=== PATIENT | female | born 1955 | race Caucasian/White ===

== ENCOUNTER 2017-02-11 12:13 | Emergency (ER) | payer BC ==
[2017-02-11 12:41] VITALS: BP 98/77
--- NOTE | 2017-02-11 13:16 | UC ---
Xavier Gibbs Thomas, [facility] 02/11/17 at 1302 . Throat Pain/Nasal [place] HPI - HPI Summary HPI Summary: In Room Note: The patient is a 61 year old female presenting to Urgent Care complaining of nasal drainage and nasal congestion for the last several days. She describes the nasal drainage as foul-smelling. The patient was cleaning her basement recently and was going through moldy bins, including one particularly bad- smelling bin. The patient has treated the symptoms with Brittni prior to arrival. Patient additionally complains of chronic neck pain. Patient denies fever any other complaints. MD Note: VSS, Pulse 106, respiratory rate 16. She is a smoker. Visit History: noncontributory to present exam. No allergies, no medications. Left breast mastectomy 20 years ago. Nurses Note: had been cleaning in the basement. was in a lot of moldy bins of old stuff. she has had a runny nose with foul smelling nasal drainage since then. She did try taking Brittni but it did not help. - History of Current Complaint Chief Complaint: UCGeneralIllness Stated Complaint: RESP COMPLAINT Time Seen by Provider: 02/11/17 12:52 Hx Obtained From: Patient Onset/Duration: Lasting Days - last several, Still Present Severity: Moderate Pain Intensity: 0 Pain Scale Used: 0-10 Numeric Cough: None Associated Signs & Symptoms: Positive: Nasal Discharge, Other - Nasal congestion , chronic neck pain Related History: Smoking, Other (Noted In Comments) - Moldy basement - Allergies/Home Medications Allergies/Adverse Reactions: Allergies Allergy/AdvReac Type Severity Reaction Status Date / Time No Known Allergies Allergy Verified 02/11/17 12:41 PMH/Surg Hx/FS Hx/Imm Hx Previously Healthy: No - Breast cancer. NEGATIVE: CAD. - Surgical History Surgical History: Yes Surgery Procedure, Year, and Place: left mastectomy - Family History Known Family History: Negative: Cardiac Disease - Social History Occupation: Unemployed Lives: With Family Alcohol Use: Daily Substance Use Type: None Smoking Status (MU): Light Every Day Tobacco Smoker Review of Systems ENT: Nasal Discharge, Other - Nasal congestion Musculoskeletal: Other: - Chronic neck pain Is Patient Immunocompromised?: No All Other Systems Reviewed And Are Negative: Yes - Comments Additional Review of Systems Comments: A 12 point review of systems was completed and significantly positive for nasal discharge, nasal congestion, and chronic neck pain. The remainder of the review was negative except as stated above in the HPI. Physical Exam Triage Information Reviewed: Yes Vital Signs: Initial Vital Signs Temp 98.5 F 02/11/17 12:33 Pulse 106 02/11/17 12:33 Resp 16 02/11/17 12:33 BP 98/77 02/11/17 12:33 Vital Signs Reviewed: Yes - Additional Comments Appearance: The patient is well-appearing, is in no pain distress, and is well- nourished. Eyes: Conjunctiva are clear. ENT: The hearing is grossly normal, the pharynx is normal, and the TMs are normal. There is no muffled or hoarse voice. When I look in the nose, there is no evidence for trauma or infection. There is normal erythema to the septum. There is no bleeding. Both nares are patent. Neck: The neck is supple and nontender. Respiratory: The chest is nontender. The lungs are clear, there are normal breath sounds, and there is no respiratory distress. Cardiovascular: Heart is regular rate and rhythm. There is no murmur. Abdomen: The abdomen is soft and nontender. There is no organomegaly. Bowel sounds: present Musculoskeletal: Strength is intact. The patient moves all extremities. Neurological: The patient is alert. Psychological: The patient displays age appropriate behavior Skin: Negative for rashes. Throat Pain/Nasal Course/Dx - Course Assessment/Plan: Normal BP reading and no follow-up instructions required. Medications have been included in the original chart and reviewed. - Differential Dx/Diagnosis Differential Diagnosis/HQI/PQRI: Sinusitis, Other - Allergic reaction, rhinitis Provider Diagnoses: Allergic reaction, rhinitis Discharge - Discharge Plan Condition: Stable Disposition: HOME Prescriptions: Fluticasone Propionate (Nasal) [Flonase Allergy Relief] 50 mcg NA BID #1 spr MDD 8 sprays per nostril Patient Education Materials: Allergic Rhinitis (ED), General Allergic Reaction (ED) Referrals: Marcelino Alfaro MD [Primary Care Provider] - Additional Instructions: Thank you for helping us improve patient care by filling out the My Point Survey. WE DISCUSSED: 1. You have a localized allergic reaction in your nose from breathing something in through your nostrils. This may also have caused a mild inflammation, a "rhinitis." 2. Irrigate your nasal passages with warm warm from a syringe or with a Neti pot. 3. Use spray to calm your nostril skin. Flonase, 2 sprays to each nostril, twice a day. 4. Coat your nose with a little Vaseline for the next 5 days. PLEASE SEEK CARE AT THE EMERGENCY DEPARTMENT IF SYMPTOMS WORSEN OR IF NEW SYMPTOMS DEVELOP. FOLLOW UP WITH YOUR PRIMARY CARE PHYSICIAN IF YOU ARE NOT IMPROVING IN 5 DAYS. The documentation as recorded by the Xavier mo Thomas accurately reflects the service I personally performed and the decisions made by , Sree Hamilton MD.
== END 2017-02-11 13:20 | disposition home or self-care (01) ==
LOC: UCEAST 12:13
DX: J30.9 Allergic rhinitis, unspecified (principal)
CPT/HCPCS: 99212; G0463

== ENCOUNTER 2017-02-23 15:57 | Emergency (ER) | payer BC ==
[2017-02-23 16:15] VITALS: BP 118/91
--- NOTE | 2017-02-23 16:48 | UC ---
Throat Pain/Nasal [place] HPI - HPI Summary HPI Summary: Pt states approx 3 weeks ago got a sudden dust exposure in face. Pt states quickly became stuffy and was evaluated here. Pt states she was given Rx flonase Over past 1 week increased congestion wit thick green nasal secretion left nose. Pr treports sinus pressure left max + PND No ear pain. No fever, chills + improvement with steam shower Pt's medications reviewed this visit - History of Current Complaint Chief Complaint: UCGeneralIllness Stated Complaint: SINUS CONGESTION, AND NECK AND HEADACHE Time Seen by Provider: 02/23/17 16:48 Hx Obtained From: Patient ?: No Onset/Duration: Gradual Onset Severity: Moderate Associated Signs & Symptoms: Positive: Negative - Allergies/Home Medications Allergies/Adverse Reactions: Allergies Allergy/AdvReac Type Severity Reaction Status Date / Time No Known Allergies Allergy Verified 02/23/17 16:15 PMH/Surg Hx/FS Hx/Imm Hx Previously Healthy: Yes - Surgical History Surgical History: Yes Surgery Procedure, Year, and Place: left mastectomy - Family History Known Family History: Negative: Cardiac Disease, Diabetes - Social History Occupation: Works From/At Home Lives: With Family Alcohol Use: Daily Substance Use Type: None Smoking Status (MU): Smoker, Current Status Unknown Review of Systems Constitutional: Negative Skin: Negative Eyes: Negative ENT: Nasal Discharge, Sinus Pain/Tenderness Respiratory: Negative All Other Systems Reviewed And Are Negative: Yes Physical Exam Triage Information Reviewed: Yes Appearance: Well-Appearing, No Pain Distress, Well-Nourished Vital Signs: Initial Vital Signs Temp 99.1 F 02/23/17 16:09 Pulse 105 02/23/17 16:09 Resp 20 02/23/17 16:09 BP 118/91 02/23/17 16:09 Pulse Ox 100 02/23/17 16:09 Vital Signs Reviewed: Yes Eye Exam: Normal Eyes: Positive: Conjunctiva Clear ENT Exam: Normal ENT: Positive: Normal ENT inspection, Nasal congestion, TMs normal, Sinus tenderness - max, Other - + pnd + TTP left max sinus. Negative: Pharyngeal erythema Dental Exam: Normal Neck exam: Normal Neck: Positive: Supple, Nontender, No Lymphadenopathy Respiratory Exam: Normal Respiratory: Positive: Chest non-tender, Lungs clear, Normal breath sounds, No respiratory distress, No accessory muscle use Cardiovascular Exam: Normal Cardiovascular: Positive: RRR, No Murmur Abdominal Exam: Normal Abdomen Description: Positive: Nontender, No Organomegaly Bowel Sounds: Positive: Present Musculoskeletal Exam: Normal Musculoskeletal: Positive: Strength Intact Neurological Exam: Normal Neurological: Positive: Alert Psychological Exam: Normal Psychological: Positive: Normal Response To Family Skin Exam: Normal Throat Pain/Nasal Course/Dx - Course Course Of Treatment: Pt with sinus congestion, discomfort and green discharge left nose s/p dust exposure. PT well appearing with sinus congesion. Will start abx. secretion precaution. Pt comfortable and in agreement with plan - Differential Dx/Diagnosis Provider Diagnoses: sinusitis Discharge - Discharge Plan Condition: Stable Disposition: HOME Prescriptions: Amoxicillin/Clavulanate TAB* [Augmentin TAB 875*] 875 mg PO BID #20 tab Fluconazole [Diflucan 150 MG (NF)] 150 mg PO ONCE PRN #1 tab PRN Reason: yeast infection Patient Education Materials: Sinusitis (ED) Referrals: Marcelino Alfaro MD [Primary Care Provider] - Additional Instructions: - Stay well hydrated. Drink plenty of non-alcoholic, non-caffinated beverages. - After you have been on antibiotics for 2 days - change your toothbrush and your pillowcase. These infections are spread by secretions - do NOT share eating or drinking utensils - clean items you share with other people such as cell phones, computer mouse, TV remote, computer tablets, etc - Alternate ibuprofen (Advil, Motrin) 600mg and Tylenol every 3 hours for pain or fever. Take with food. Do NOT take for more than 4-5 days. - You may develop diarrhea with the antibiotics- this is normal. Taking yogurt or a pro-biotic may help with the diarrhea. - You have been given a prescription for diflucan to take at the end of your antibiotics if you develop a yeast infection - Contact your doctor to schedule a follow-up appointment. Contact your doctor or return with questions or concerns
== END 2017-02-23 17:05 | disposition home or self-care (01) ==
LOC: UCEAST 15:57
DX: J32.9 Chronic sinusitis, unspecified (principal); F17.200 Nicotine dependence, unspecified, uncomplicated
CPT/HCPCS: 99212; G0463

== ENCOUNTER 2022-07-06 10:05 | Inpatient (IN) ==
[2022-07-06 11:36] LABS: ABS Monocytes 0.6 10^3/uL (0.0-0.9); Hematocrit 36.2 % (35-45); Hemoglobin 12.1 g/dL (11.5-14.3); Lymphocyte % 15.7 %; Mean Corpuscular Hgb Conc 33.4 g/dL (31-36); Mean Corpuscular Volume 86.9 fL (80-97); Mean Platelet Volume 9.3 fL (7.5-11.2); Platelet Count 248 10^3/uL (150-450); Red Blood Count 4.16 10^6/uL (3.63-4.92); Red Cell Distribution Width 14.2 % (12-17); White Blood Count 6.7 10^3/uL (3.8-11.8)
[2022-07-06 11:37] LABS: Urine Appearance Clear; Urine Bilirubin Negative (Negative); Urine Blood Negative (Negative); Urine Color Yellow; Urine Glucose Negative (Negative); Urine Ketones Negative (Negative); Urine Nitrite Negative (Negative); Urine Protein Negative (Negative); Urine Specific Gravity 1.011 (1.002-1.030); Urine Urobilinogen Negative (Negative)
[2022-07-06 12:20] LABS: TSH Ultra Thyroid Stim Horm 0.81 mcIU/mL (0.34-5.60)
[2022-07-06 12:33] LABS: ALT 14 U/L (7-52); Albumin 3.6 g/dL (3.2-5.2); Albumin/Globulin Ratio 1.3 (1-3); Alkaline Phosphatase 151 U/L (35-149); Blood Urea Nitrogen 11 mg/dL (6-24); CO2 Carbon Dioxide 28 mmol/L (22-32); Calcium 8.8 mg/dL (8.6-10.3); Chloride 102 mmol/L (101-111); Creatinine, Serum 0.45 mg/dL (0.51-0.95); Globulin 2.7 g/dL (2-4); Glucose 105 mg/dL (70-100); Sodium 138 mmol/L (135-145); Total Protein 6.3 g/dL (6.4-8.9); eGFR CKD-EPI 104.7 (>60)
[2022-07-06 12:39] LABS: Anion Gap 8 mmol/L (2-16)
[2022-07-06 14:39] LABS: GGTP 15 U/L (9-64.0)
[2022-07-06 14:44] LABS: Vitamin B12 380 pg/mL (180-914)
[2022-07-06] MEDS ORDERED: NS 0.9% 500 ml BAG 500 ML IV ONE ×2 (15:01→16:07)
[2022-07-06 16:00] LABS: Potassium Redraw 3.6 mmol/L (3.5-5.0)
[2022-07-06] MEDS ORDERED: NS 0.9% 1000 ML/HR X 1 BAG (TOTAL 1000 ML) IV ONE (17:15)
[2022-07-06] MEDS: Enoxaparin 40 MG/0.4 ML SYR SUBCUT SCH (17:24)
[2022-07-06] MEDS: NS 0.9% 1000 ml BAG 1,000 ML IV SCH (18:37)
[2022-07-06] MEDS: levETIRAcetam LIQ 500 MG/5 ML UDC PO SCH (23:07)
[2022-07-07 05:33] LABS: ABS Lymphocytes 1.2 10^3/uL (1.0-4.8); ABS Monocytes 0.6 10^3/uL (0.0-0.9); ABS Neutrophils 4.9 10^3/uL (1.5-7.6); Eosinophil % 0.1 %; Hematocrit 34.5 % (35-45); Hemoglobin 11.3 g/dL (11.5-14.3); Mean Corpuscular Hemoglobin 28.4 pg (27-33); Mean Corpuscular Hgb Conc 32.7 g/dL (31-36); Mean Corpuscular Volume 86.7 fL (80-97); Mean Platelet Volume 8.4 fL (7.5-11.2); Platelet Count 210 10^3/uL (150-450); Red Blood Count 3.98 10^6/uL (3.63-4.92); Red Cell Distribution Width 13.7 % (12-17); White Blood Count 6.7 10^3/uL (3.8-11.8)
[2022-07-07 06:13] LABS: Calcium 8.2 mg/dL (8.6-10.3); Creatinine, Serum 0.47 mg/dL (0.51-0.95); Potassium 3.1 mmol/L (3.5-5.0); eGFR CKD-EPI 103.6 (>60)
[2022-07-07] MEDS: NS 0.9% 1000 ml BAG 1,000 ML IV SCH (08:53)
[2022-07-07] MEDS: levETIRAcetam LIQ 500 MG/5 ML UDC PO SCH (11:06)
[2022-07-07 15:08] LABS: Creatine Kinase 572 U/L (10-223)
[2022-07-07] MEDS: Enoxaparin 40 MG/0.4 ML SYR SUBCUT SCH (15:17)
[2022-07-07] MEDS: Acetaminophen IV 1 GM/100ML 1,000 MG/100 ML BAG IV PRN (15:50)
[2022-07-07] MEDS ORDERED: Vancomycin per Pharmacy 1 EA NOTE FOLLOW UP PRN (16:44)
[2022-07-07] MEDS ORDERED: Acyclovir IV 860 MG in NS 0.9% 250 ml 250 ML IVPB SCH (17:00)
[2022-07-07] MEDS ORDERED: Vancomycin 1,250 MG in NS 0.9% 250 ml 250 ML IVPB ONE (17:00)
[2022-07-07] MEDS: cefTRIAXone 2 gm/50 mL D5W 2 GM/50 ML BAG IV SCH (17:42)
[2022-07-07] MEDS ORDERED: Acyclovir IV 570 MG in NS 0.9% 100 ml BAG 100 ML IVPB SCH (18:00)
[2022-07-07] MEDS: Ampicillin ADVAN 2 GM in NS 0.9% 100 ml BAG 100 ML IVPB SCH (18:19)
[2022-07-07] MEDS ORDERED: OLANZapine IM (NF) 10 MG VIAL IM ONE (21:10)
[2022-07-08] MEDS ORDERED: Iohexol 350 (CONTRAST) 500 ML MDV IV ONE (00:10)
[2022-07-08] MEDS: levETIRAcetam LIQ 500 MG/5 ML UDC PO SCH ×3 (00:19→22:08)
[2022-07-08] MEDS: Ampicillin ADVAN 2 GM in NS 0.9% 100 ml BAG 100 ML IVPB SCH ×4 (02:07→10:04)
[2022-07-08] MEDS ORDERED: OLANZapine IM (NF) 10 MG VIAL IM ONE (02:20)
[2022-07-08] MEDS: Acyclovir IV 570 MG in NS 0.9% 100 ml BAG 100 ML IVPB SCH ×2 (02:57→08:34)
[2022-07-08] MEDS: cefTRIAXone 2 gm/50 mL D5W 2 GM/50 ML BAG IV SCH (04:27)
[2022-07-08 05:59] LABS: ABS Lymphocytes 1.7 10^3/uL (1.0-4.8); ABS Monocytes 0.6 10^3/uL (0.0-0.9); ABS Neutrophils 3.4 10^3/uL (1.5-7.6); ABS Nucleated RBC 0.01 10^3/ul; Eosinophil % 0.2 %; Hematocrit 38.5 % (35-45); Hemoglobin 12.7 g/dL (11.5-14.3); Lymphocyte % 29.4 %; Mean Corpuscular Hemoglobin 29.1 pg (27-33); Mean Platelet Volume 8.7 fL (7.5-11.2); Nucleated Red Blood Cells % 0.1 /100 WBC (0.0-0.4); Platelet Count 183 10^3/uL (150-450); Red Blood Count 4.37 10^6/uL (3.63-4.92); White Blood Count 5.7 10^3/uL (3.8-11.8)
[2022-07-08 06:25] LABS: Calcium 8.5 mg/dL (8.6-10.3); Potassium 3.3 mmol/L (3.5-5.0)
[2022-07-08 06:30] LABS: Creatinine, Serum 0.43 mg/dL (0.51-0.95); eGFR CKD-EPI 105.9 (>60)
[2022-07-08] MEDS ORDERED: Potassium Chlor 20 meq TAB.ER PO ONE (07:24)
[2022-07-08] MEDS ORDERED: Vancomycin 1000 MG in NS 0.9% 250 ML IVPB SCH (08:00)
[2022-07-08 08:28] LABS: Magnesium 2.1 mg/dL (1.9-2.7)
[2022-07-08] MEDS: metroNIDAZOLE IV 500 MG/100ML 500 MG/100 ML BAG IVPB SCH ×2 (11:23→20:57)
[2022-07-08] MEDS: Enoxaparin 40 MG/0.4 ML SYR SUBCUT SCH (16:09)
[2022-07-08] MEDS: OLANZAPINE 10 MG IM PRN (17:26)
[2022-07-08] MEDS ORDERED: OLANZapine IM (NF) 10 MG VIAL IM PRN (17:33)
[2022-07-09] MEDS: metroNIDAZOLE IV 500 MG/100ML 500 MG/100 ML BAG IVPB SCH ×3 (01:44→21:17)
[2022-07-09] MEDS: cefTRIAXone 1 gm/50 mL D5W 1 GM/50 ML BAG IV SCH (03:55)
[2022-07-09] MEDS: OLANZAPINE 10 MG IM PRN ×3 (05:15→23:10)
[2022-07-09] MEDS ORDERED: Vancomycin Trough Check NOTE FOLLOW UP ONE (07:30)
[2022-07-09 08:25] LABS: ABS Lymphocytes 1.5 10^3/uL (1.0-4.8); ABS Monocytes 0.5 10^3/uL (0.0-0.9); ABS Neutrophils 3.1 10^3/uL (1.5-7.6); Eosinophil % 0.5 %; Hematocrit 34.9 % (35-45); Hemoglobin 11.5 g/dL (11.5-14.3); Mean Corpuscular Hemoglobin 28.7 pg (27-33); Mean Corpuscular Hgb Conc 32.9 g/dL (31-36); Mean Corpuscular Volume 87.4 fL (80-97); Mean Platelet Volume 8.9 fL (7.5-11.2); Platelet Count 221 10^3/uL (150-450); Red Blood Count 3.99 10^6/uL (3.63-4.92); Red Cell Distribution Width 13.8 % (12-17)
[2022-07-09 08:58] LABS: Calcium 8.2 mg/dL (8.6-10.3); Creatinine, Serum 0.45 mg/dL (0.51-0.95); Potassium 2.9 mmol/L (3.5-5.0); eGFR CKD-EPI 104.7 (>60)
[2022-07-09] MEDS ORDERED: OLANZapine IM (NF) 10 MG VIAL IM ONE (08:58)
[2022-07-09] MEDS: levETIRAcetam LIQ 500 MG/5 ML UDC PO SCH (11:10)
[2022-07-09] MEDS ORDERED: Gadoteridol (CONTRAST) 279.3 MG/ML 10 ML IV ONE (12:01)
[2022-07-09] MEDS ORDERED: D5W 1/2 NS KCl 20 meq 1000 ml 1,000 ML IV SCH (15:00)
[2022-07-09] MEDS: Enoxaparin 40 MG/0.4 ML SYR SUBCUT SCH (15:32)
[2022-07-09] MEDS: Potassium Chloride LIQUID 20 MEQ/15 ML LIQUID PO ONE ×2 (15:32→15:35)
[2022-07-09] MEDS ORDERED: OLANZapine IM (NF) 10 MG VIAL IM PRN ×2 (17:11→18:00)
[2022-07-09] MEDS ORDERED: Potassium Chloride LIQUID 20 MEQ/15 ML LIQUID PO ONE (18:00)
[2022-07-09] MEDS: KCL 10 MEQ/50 ML IVPREMIX 10 MEQ/50 ML BAG IV SCH ×2 (22:15→23:20)
[2022-07-10] MEDS: Acetaminophen IV 1 GM/100ML 1,000 MG/100 ML BAG IV PRN (00:34)
[2022-07-10] MEDS: KCL 10 MEQ/50 ML IVPREMIX 10 MEQ/50 ML BAG IV SCH (00:53)
[2022-07-10] MEDS ORDERED: Hyaluronidase HUMAN 15 UNIT in Sodium Chloride 0.9% 0.9 ML INTRADERM ONE (01:34)
[2022-07-10] MEDS: levETIRAcetam LIQ 500 MG/5 ML UDC PO SCH ×3 (01:40→21:56)
[2022-07-10] MEDS: cefTRIAXone 1 gm/50 mL D5W 1 GM/50 ML BAG IV SCH (02:56)
[2022-07-10] MEDS: metroNIDAZOLE IV 500 MG/100ML 500 MG/100 ML BAG IVPB SCH ×3 (04:26→17:51)
[2022-07-10 07:12] LABS: Hematocrit 34.7 % (35-45); Hemoglobin 11.6 g/dL (11.5-14.3); Mean Corpuscular Hemoglobin 28.8 pg (27-33); Mean Corpuscular Hgb Conc 33.6 g/dL (31-36); Mean Corpuscular Volume 85.7 fL (80-97); Mean Platelet Volume 8.9 fL (7.5-11.2); Platelet Count 215 10^3/uL (150-450); Red Blood Count 4.05 10^6/uL (3.63-4.92); Red Cell Distribution Width 13.8 % (12-17); White Blood Count 5.1 10^3/uL (3.8-11.8)
[2022-07-10 07:36] LABS: Creatinine, Serum 0.35 mg/dL (0.51-0.95); Potassium 3.4 mmol/L (3.5-5.0)
[2022-07-10 07:37] LABS: Calcium 8.4 mg/dL (8.6-10.3); Phosphorus 3.7 mg/dL (2.5-5.0); eGFR CKD-EPI 111.3 (>60)
[2022-07-10] MEDS: Potassium Chloride LIQUID 20 MEQ/15 ML LIQUID PO SCH ×2 (09:58→21:55)
[2022-07-10] MEDS: Enoxaparin 40 MG/0.4 ML SYR SUBCUT SCH (15:15)
[2022-07-10] MEDS: CMC:Meloxicam 7.5 mg TAB (NF) PO SCH (15:15)
[2022-07-10] MEDS: Haloperidol 5 mg/ml SDV IV/IM 5 MG/ML AMP IM PRN (15:22)
[2022-07-10] MEDS ORDERED: Morphine 2 MG/ML SYRINGE IV ONE (18:22)
[2022-07-10] MEDS ORDERED: Acetaminophen IV 1 GM/100ML 1,000 MG/100 ML BAG IV PRN (21:38)
[2022-07-11] MEDS: metroNIDAZOLE IV 500 MG/100ML 500 MG/100 ML BAG IVPB SCH ×3 (02:19→18:31)
[2022-07-11] MEDS: cefTRIAXone 1 gm/50 mL D5W 1 GM/50 ML BAG IV SCH (03:41)
[2022-07-11] MEDS ORDERED: Morphine 2 MG/ML SYRINGE IV ONE (05:00)
[2022-07-11 05:57] LABS: ABS Eosinophils 0.1 10^3/uL (0.0-0.5); ABS Lymphocytes 1.6 10^3/uL (1.0-4.8); ABS Monocytes 0.3 10^3/uL (0.0-0.9); ABS Neutrophils 2.5 10^3/uL (1.5-7.6); ABS Nucleated RBC 0.01 10^3/ul; Eosinophil % 1.5 %; Hemoglobin 11.1 g/dL (11.5-14.3); Lymphocyte % 35.4 %; Mean Corpuscular Hemoglobin 28.7 pg (27-33); Mean Corpuscular Hgb Conc 32.7 g/dL (31-36); Mean Corpuscular Volume 87.7 fL (80-97); Mean Platelet Volume 9.2 fL (7.5-11.2); Nucleated Red Blood Cells % 0.1 /100 WBC (0.0-0.4); Platelet Count 222 10^3/uL (150-450); Red Blood Count 3.87 10^6/uL (3.63-4.92); Red Cell Distribution Width 13.9 % (12-17); White Blood Count 4.5 10^3/uL (3.8-11.8)
[2022-07-11 06:13] LABS: Calcium 8.5 mg/dL (8.6-10.3); Creatinine, Serum 0.45 mg/dL (0.51-0.95); Potassium 4.3 mmol/L (3.5-5.0); eGFR CKD-EPI 104.7 (>60)
[2022-07-11] MEDS ORDERED: Meloxicam 15 mg TAB (NF) PO SCH (09:00)
[2022-07-11] MEDS: Haloperidol 5 mg/ml SDV IV/IM 5 MG/ML AMP IM PRN (09:02)
[2022-07-11] MEDS ORDERED: Haloperidol 5 mg/ml SDV IV/IM 5 MG/ML AMP IV SLOW PU PRN (09:23)
[2022-07-11] MEDS: levETIRAcetam LIQ 500 MG/5 ML UDC PO SCH ×2 (12:39→20:08)
[2022-07-11] MEDS: CMC:Meloxicam 7.5 mg TAB (NF) PO SCH (16:58)
[2022-07-11] MEDS: Enoxaparin 40 MG/0.4 ML SYR SUBCUT SCH (16:59)
[2022-07-11] MEDS: Morphine 2 MG/ML SYRINGE IV PRN (18:55)
[2022-07-12] MEDS: metroNIDAZOLE IV 500 MG/100ML 500 MG/100 ML BAG IVPB SCH ×3 (02:04→17:55)
[2022-07-12] MEDS: cefTRIAXone 1 gm/50 mL D5W 1 GM/50 ML BAG IV SCH (03:38)
[2022-07-12] MEDS: Morphine 2 MG/ML SYRINGE IV PRN ×3 (05:55→19:46)
[2022-07-12] MEDS: levETIRAcetam LIQ 500 MG/5 ML UDC PO SCH (08:11)
[2022-07-12] MEDS: Enoxaparin 40 MG/0.4 ML SYR SUBCUT SCH ×2 (14:08→14:47)
[2022-07-12] MEDS: CMC:Meloxicam 7.5 mg TAB (NF) PO SCH (14:46)
[2022-07-12] MEDS: Haloperidol 5 mg/ml SDV IV/IM 5 MG/ML AMP IM PRN (17:43)
[2022-07-13] MEDS: levETIRAcetam LIQ 500 MG/5 ML UDC PO SCH ×3 (00:16→20:42)
[2022-07-13] MEDS: metroNIDAZOLE IV 500 MG/100ML 500 MG/100 ML BAG IVPB SCH (02:10)
[2022-07-13] MEDS: cefTRIAXone 1 gm/50 mL D5W 1 GM/50 ML BAG IV SCH (03:15)
[2022-07-13] MEDS: Morphine 2 MG/ML SYRINGE IV PRN ×2 (04:01→09:20)
[2022-07-13] MEDS ORDERED: Morphine 2 MG/ML SYRINGE IV ONE ×2 (13:38→21:03)
[2022-07-13] MEDS: CMC:Meloxicam 7.5 mg TAB (NF) PO SCH (16:25)
[2022-07-13] MEDS: Enoxaparin 40 MG/0.4 ML SYR SUBCUT SCH (16:25)
[2022-07-13] MEDS: Haloperidol 5 mg/ml SDV IV/IM 5 MG/ML AMP IM PRN (19:04)
[2022-07-14] MEDS: levETIRAcetam LIQ 500 MG/5 ML UDC PO SCH ×3 (01:33→21:19)
[2022-07-14] MEDS: CMC:Meloxicam 7.5 mg TAB (NF) PO SCH (17:06)
[2022-07-14] MEDS: Enoxaparin 40 MG/0.4 ML SYR SUBCUT SCH (17:07)
[2022-07-15] MEDS ORDERED: Morphine ORAL CONCENTRATE 5 MG/0.25 ML ORAL.SYRIN PO PRN (07:58)
[2022-07-15] MEDS: Morphine ORAL CONCENTRATE 5 MG/0.25 ML ORAL.SYRIN SL PRN ×3 (08:22→19:01)
[2022-07-15] MEDS: levETIRAcetam LIQ 500 MG/5 ML UDC PO SCH ×2 (11:05→20:02)
[2022-07-15] MEDS: Enoxaparin 40 MG/0.4 ML SYR SUBCUT SCH (14:05)
[2022-07-15] MEDS: CMC:Meloxicam 7.5 mg TAB (NF) PO SCH (16:50)
[2022-07-16] MEDS: Morphine ORAL CONCENTRATE 5 MG/0.25 ML ORAL.SYRIN SL PRN ×3 (06:25→22:13)
[2022-07-16] MEDS: levETIRAcetam LIQ 500 MG/5 ML UDC PO SCH ×2 (09:54→20:33)
[2022-07-16] MEDS: CMC:Meloxicam 7.5 mg TAB (NF) PO SCH (14:58)
[2022-07-16] MEDS: Enoxaparin 40 MG/0.4 ML SYR SUBCUT SCH (14:58)
[2022-07-17] MEDS: Morphine ORAL CONCENTRATE 5 MG/0.25 ML ORAL.SYRIN SL PRN (03:12)
[2022-07-17] MEDS ORDERED: Haloperidol 5 mg/ml SDV IV/IM 5 MG/ML AMP IV SLOW PU ONE (05:31)
[2022-07-17] MEDS: levETIRAcetam LIQ 500 MG/5 ML UDC PO SCH ×2 (09:53→22:24)
[2022-07-17] MEDS ORDERED: Polyethylene Glycol 3350 17 GM PACKET PO PRN (10:50)
[2022-07-17] MEDS: Enoxaparin 40 MG/0.4 ML SYR SUBCUT SCH (15:07)
[2022-07-17] MEDS: CMC:Meloxicam 7.5 mg TAB (NF) PO SCH (15:08)
[2022-07-18] MEDS: levETIRAcetam LIQ 500 MG/5 ML UDC PO SCH ×2 (08:18→20:43)
[2022-07-18] MEDS: Morphine ORAL CONCENTRATE 5 MG/0.25 ML ORAL.SYRIN SL PRN ×2 (09:01→19:33)
[2022-07-18] MEDS: Enoxaparin 40 MG/0.4 ML SYR SUBCUT SCH (13:59)
[2022-07-18] MEDS: CMC:Meloxicam 7.5 mg TAB (NF) PO SCH (14:07)
[2022-07-19] MEDS: Morphine ORAL CONCENTRATE 5 MG/0.25 ML ORAL.SYRIN SL PRN ×3 (03:11→17:56)
[2022-07-19] MEDS: levETIRAcetam LIQ 500 MG/5 ML UDC PO SCH ×2 (07:37→21:18)
[2022-07-19] MEDS: Enoxaparin 40 MG/0.4 ML SYR SUBCUT SCH (15:17)
[2022-07-19] MEDS: CMC:Meloxicam 7.5 mg TAB (NF) PO SCH (15:18)
[2022-07-20] MEDS: Morphine ORAL CONCENTRATE 5 MG/0.25 ML ORAL.SYRIN SL PRN (04:47)
[2022-07-20] MEDS: levETIRAcetam LIQ 500 MG/5 ML UDC PO SCH ×2 (08:39→20:12)
[2022-07-20] MEDS: CMC:Meloxicam 7.5 mg TAB (NF) PO SCH (13:57)
[2022-07-20] MEDS: Enoxaparin 40 MG/0.4 ML SYR SUBCUT SCH (13:57)
[2022-07-21] MEDS: levETIRAcetam LIQ 500 MG/5 ML UDC PO SCH ×2 (09:05→20:09)
[2022-07-21] MEDS: Morphine ORAL CONCENTRATE 5 MG/0.25 ML ORAL.SYRIN SL PRN (10:05)
[2022-07-21] MEDS: CMC:Meloxicam 7.5 mg TAB (NF) PO SCH (15:36)
[2022-07-21] MEDS: Enoxaparin 40 MG/0.4 ML SYR SUBCUT SCH (15:38)
[2022-07-22] MEDS: Morphine ORAL CONCENTRATE 5 MG/0.25 ML ORAL.SYRIN SL PRN (03:42)
[2022-07-22] MEDS: levETIRAcetam LIQ 500 MG/5 ML UDC PO SCH (07:23)
[2022-07-22] MEDS ORDERED: Morphine ORAL CONCENTRATE 5 MG/0.25 ML ORAL.SYRIN SL PRN (08:24)
[2022-07-22 13:32] VITALS: BP 104/71
[2022-07-22 14:11] LABS: Rapid COVID-19 Molecular Undetected (Undetected)
[2022-07-22] MEDS: CMC:Meloxicam 7.5 mg TAB (NF) PO SCH (14:23)
== END 2022-07-22 14:00 | disposition hospice, inpatient (51) | DRG 42 ==
LOC: ED 10:05 → EDHOLD 10:05 → SUATTDRO 13:41 → MED 15:09 → SUATTDRO 07-08 16:38
PROVIDERS: ADMIT Internal Medicine; ATTEND Student in an Organized Health Care Education/Training Program